=== PATIENT | male | born 1940 | race Caucasian/White ===

== ENCOUNTER 2016-09-10 09:51 | Emergency (ER) | payer MEDICARE, BC ==
[~2016-09-10] VITALS: Ht 172.7 cm; Wt 84.0 kg
[~2016-09-10 09:51] MED LIST: ASPI81TA82 PO; CHLO50TA PO; DIPH1TAB36 PO; LOSA50TA PO; MELA5TAB8 PO; META28.3 PO; MULT1TAB PO; TAMS0.4C4 PO; VITATAB25 PO
[2016-09-10 09:57] VITALS: BP 212/98; PULSE 77; RESP 16; TEMP 98.1; O2SAT 95
[2016-09-10 10:04] VITALS: PULSE 82; RESP 16; O2SAT 96
[2016-09-10] MEDS ORDERED: CYAN25003 SL (10:15)
[2016-09-10] MEDS ORDERED: ACETAMINOPHEN/HYDROcodone 325 MG/5 MG TAB PO ONE (10:15)
[2016-09-10] MEDS ORDERED: VALA500T PO (10:15)
[2016-09-10] MEDS ORDERED: LOSA50TA PO (10:15)
[2016-09-10] MEDS ORDERED: HYDR1CRE73 (10:15)
[2016-09-10] MEDS ORDERED: MELA5TAB14 PO (10:15)
[2016-09-10] MEDS ORDERED: META48.53 PO (10:15)
[2016-09-10] MEDS ORDERED: B-COCAP9 PO (10:15)
[2016-09-10] MEDS ORDERED: CHLO25TA2 PO (10:15)
[2016-09-10] MEDS ORDERED: VITA100064 PO (10:15)
[2016-09-10] MEDS ORDERED: ASPI-110 PO (10:15)
[2016-09-10] MEDS ORDERED: FLUT50SP EACH NARE (10:15)
[2016-09-10] MEDS ORDERED: FISHCAP PO (10:15)
--- NOTE | 2016-09-10 10:21 | PD ---
HPI Chief Complaint: Fall Time Seen by Provider: 10:15 Travel History International Travel<30 days: No Contact w/Intl Traveler<30days: No Traveled to known affect area: No History of Present Illness HPI This is a 76-year-old male who takes a baby aspirin 3 times per week who presents to the emergency department having fallen off 4 foot scaffolding yesterday. The patient sustained an injury to his right upper abdomen and lower chest and he hit his head. He says he has 4 out of 10 pain this morning, constant, worse with walking and deep breath, improved with rest. His pain is mostly in the right upper quadrant sometimes radiating to the back. He also has a slight headache on the right side where he hit his head. He doesn't think he lost consciousness but isn't sure. He denies any neck pain. He went to an urgent care prior to arrival here and was referred here for CT imaging. PFSH Past Medical History Cancer: Yes (basal cell ca) Cardiovascular Problems: Yes Diabetes: No Diminished Hearing: Yes Endocrine: No Genitourinary: No Hepatitis: No Hiatal Hernia: Yes Hypertension: Yes Immune Disorder: No Insomnia: Yes Musculoskeletal: No Neurologic: No Reproductive: No Respiratory: No Thyroid Disease: No Tetanus Vaccination: Unknown Influenza Vaccination: Yes Past Surgical History AICD: No Body Medical Devices: 2 stents Cardiac Surgery: Yes (2 stents 2005 ) Coronary Stent: Yes (X2 2005) Joint Replacement: No Pacemaker: No Social History Alcohol Use: Yes (WINE OCC) Tobacco Use: No Substance Use: No Allergies-Medications (Allergen,Severity, Reaction): Coded Allergies: Lisinopril (Verified Allergy, Unknown, 09/10/16) Bactrim (Unverified Adverse Reaction, Severe, Rash, 04/20/15) Zestril (Unverified Adverse Reaction, Severe, Swelling, 04/20/15) Reported Meds & Prescriptions Reported Meds & Active Scripts Active Reported Proctozone-Hc (Hydrocortisone (Rectal)) 2.5 % Cre Valacyclovir (Valacyclovir HCl) 500 Mg Tab 500 Mg PO BID Melatonin Tr 5-10 mg (Melatonin-Pyridoxine) 1 Tab Tab 5 Mg PO HS Fluticasone Nasal [place] 50 Mcg/Act Naspr 2 [place] EACH NARE BID 50 mcg/spray Aspirin 81 (Aspirin) 81 Mg Tabdr 81 Mg PO DAILY Fish Oil 435 mg ([place]-3 Fatty Acids) 1 Cap Cap 300 Mg PO DAILY Vitamin B-12 (Cyanocobalamin) 2,500 Mcg Subl 2,500 Mcg SL DAILY Super B-Complex (B-Complex W/Biotin & Folic Acid) 1 Cap 1,000 Mcg PO DAILY Vitamin D (Cholecalciferol) 1,000 Unit Tab 2,000 Units PO DAILY Metamucil Original Texture (Psyllium Hydrophilic Mucilloid) 48.57 % Pow 1 Scoop PO DAILY PRN 1 rounded [place] in 8 oz of liquid at the first sign of irregularity. Losartan (Losartan Potassium) 50 Mg Tab 50 Mg PO DAILY Chlorthalidone 25 Mg Tab 37.5 Mg PO DAILY Review of Systems Except as stated in HPI: all other systems reviewed are Neg Physical Exam Narrative GENERAL:Well appearing, no acute distress SKIN: Large ecchymoses over the right upper quadrant of the abdomen with some skin abrasion. Ecchymoses and abrasion on the distal left lower extremity. HEAD: Hematoma along the right temporal area. EYES: Pupils equal and round. No injection or drainage. ENT: Moist mucous membranes NECK: Trachea midline. No cervical spine tenderness. CARDIOVASCULAR: Regular rate and rhythm. No murmur appreciated. RESPIRATORY: Clear to auscultation. Breath sounds equal bilaterally. GASTROINTESTINAL: Abdomen soft, tender to palpation in the right upper quadrant with some guarding. MUSCULOSKELETAL: No obvious deformities. NEUROLOGICAL: Awake and alert. No obvious cranial nerve deficits. Moving all extremities. PSYCHIATRIC: Appropriate mood and affect; insight and judgment normal. Data Data Last Documented VS Vital Signs Date Time Temp Pulse Resp B/P Pulse Ox O2 Delivery O2 Flow Rate FiO2 09/10/16 11:54 16 09/10/16 10:30 82 187/78 98 Room Air 09/10/16 09:57 98.1 Orders Complete Blood Count With Diff (09/10/16 10:15) Basic Metabolic Panel (Bmp) (09/10/16 10:15) ^ Insert Iv (09/10/16 10:15) Ct Brain W/O Iv Contrast(Rout) (09/10/16 ) Ct Abd/Pel W Iv Contrast(Rout) (09/10/16 ) Chest, Single Ap (09/10/16 ) Acetamin-Hydrocod 325-5 Mg ([place] 5-325 (09/10/16 10:15) Iohexol 350 Inj (Omnipaque 350 Inj) (09/10/16 11:37) Labs Laboratory Tests Test 09/10/16 10:19 White Blood Count 7.2 TH/MM3 Red Blood Count 4.39 MIL/MM3 Hemoglobin 14.2 GM/DL Hematocrit 41.5 % Mean Corpuscular Volume 94.5 FL Mean Corpuscular Hemoglobin 32.3 PG Mean Corpuscular Hemoglobin 34.2 % Concent Red Cell Distribution Width 13.5 % Platelet Count 178 TH/MM3 Mean Platelet Volume 8.7 FL Neutrophils (%) (Auto) 66.3 % Lymphocytes (%) (Auto) 19.7 % Monocytes (%) (Auto) 11.8 % Eosinophils (%) (Auto) 1.4 % Basophils (%) (Auto) 0.8 % Neutrophils # (Auto) 4.8 TH/MM3 Lymphocytes # (Auto) 1.4 TH/MM3 Monocytes # (Auto) 0.9 TH/MM3 Eosinophils # (Auto) 0.1 TH/MM3 Basophils # (Auto) 0.1 TH/MM3 CBC Comment DIFF FINAL Differential Comment Sodium Level 141 MEQ/L Potassium Level 3.9 MEQ/L Chloride Level 103 MEQ/L Carbon Dioxide Level 29.7 MEQ/L Anion Gap 8 MEQ/L Blood Urea Nitrogen 17 MG/DL Creatinine 0.89 MG/DL Estimat Glomerular Filtration 83 ML/MIN Rate Random Glucose 93 MG/DL Calcium Level 9.0 MG/DL MDM Medical Decision Making Medical Screen Exam Complete: Yes Emergency Medical Condition: Yes Interpretation(s) Afebrile, no tachycardia, hypertensive Last 24 hours Impressions Chest X-Ray 09/10/16 0000 Signed Impressions: Service Date/Time: Saturday, September 10, 2016 10:18 - CONCLUSION: No acute cardiopulmonary abnormality is identified. The sclerotic area in the right proximal humerus is nonspecific but may represent a bone island. Diaz Harvey MD CT of the head: hematoma, no intracranial hemorrhage CT the abdomen and pelvis: Abdominal wall contusion with no intra-abdominal injury Differential Diagnosis Intracranial hemorrhage, cervical spine fracture, liver laceration, abdominal wall contusion, rib fracture Narrative Course This is a 76-year-old male who presents to the emergency department having fallen off for foot scaffolding yesterday injuring his right side and his head. Patient was placed on a monitor and an IV was established. CT of the head was negative for intracranial hemorrhage. CT the abdomen and pelvis was negative for internal injury. X-ray of the chest demonstrates no pneumothorax. I suspect clinically that he does have rib fracture. Plan for pain control and incentive spirometry. Diagnosis Primary Impression: Contusion of rib on right side Qualified Code: S20.211A - Contusion of rib on right side, initial encounter Additional Impression: Abdominal wall contusion Patient Instructions: General Instructions Additional Instructions: If you develop severe chest pain, shortness of breath, sweating, lightheadedness , dizziness or difficulty breathing return to the emergency department immediately. You have a sclerotic area on the proximal humerus which is likely a bone island. This should be followed by your primary care physician. Med/Other Pt SpecificInfo: Prescription(s) given Scripts Hydrocodone-Acetaminophen (Lortab)5-325 Mg Tab1-2 Tab PO Q6H PRN (PAIN) #15 TAB Ref 0 Prov:Mary Betts MD 09/10/16 Disposition: 01 DISCHARGE HOME Condition: Stable Mary Betts MD Sep 10, 2016 10:21
[2016-09-10 10:30] VITALS: BP 187/78; PULSE 72; PULSE 82; RESP 16; O2SAT 98
[2016-09-10 10:38] LABS: AUTOMATED NEUTROPHIL # 4.8 TH/MM3 (1.8-7.7); BASOPHIL # 0.1 TH/MM3 (0-0.2); BASOPHIL % 0.8 % (0.0-2.0); EOSINOPHIL # 0.1 TH/MM3 (0-0.4); EOSINOPHIL % 1.4 % (0.0-4.0); HEMATOCRIT 41.5 % (39.0-51.0); HEMO FLAGS DIFF FINAL; LYMPH % 19.7 % (9.0-44.0); LYMPHOCYTE # 1.4 TH/MM3 (1.0-4.8); MEAN CELL VOLUME 94.5 FL (80.0-100.0); MEAN CORPUSCULAR HEMOGLOBIN 32.3 PG (27.0-34.0); MEAN CORPUSCULAR HGB CONC 34.2 % (32.0-36.0); MONO % 11.8 % (0.0-8.0); NEUT % 66.3 % (16.0-70.0); PLATELET COUNT 178 TH/MM3 (150-450); RED BLOOD COUNT 4.39 MIL/MM3 (4.50-5.90); RED CELL DISTRIBUTION WIDTH 13.5 % (11.6-17.2); WHITE BLOOD COUNT 7.2 TH/MM3 (4.0-11.0)
--- NOTE | 2016-09-10 10:38 | RADRPT ---
EXAM DATE/TIME: 09/10/2016 10:18 [facility] COMPARISON: No previous studies available for comparison. INDICATIONS : Chest Pain, Short of Breath. MEDICAL HISTORY : None. SURGICAL HISTORY : Stents. ENCOUNTER: Initial ACUITY: 1 day PAIN SCORE: 4/10 LOCATION: Bilateral chest FINDINGS: Portable AP view of the chest demonstrates a normal-sized cardiac silhouette. No effusion, consolidat ion, or pneumothorax is visualized. The bones and soft tissues demonstrate no acute abnormality. Ther e is a partially visualized sclerotic area in the right proximal humerus measuring approximately 13 m m. CONCLUSION: No acute cardiopulmonary abnormality is identified. The sclerotic area in the right proximal humerus is nonspecific but may represent a bone island. Diaz Harvey MD on September 10, 2016 at 10:35 Board Certified Radiologist. This report was verified electronically.
[2016-09-10 11:03] LABS: BICARBONATE 29.7 MEQ/L (21.0-32.0); POTASSIUM 3.9 MEQ/L (3.5-5.1)
[2016-09-10] MEDS ORDERED: IOHEXOL 350 MG/ML 10 ML VIAL (for RAD DIAG) IV ONE (11:37)
--- NOTE | 2016-09-10 11:52 | RADRPT ---
EXAM DATE/TIME: 09/10/2016 11:34 [facility] COMPARISON: No previous studies available for comparison. INDICATIONS : Trauma. Fall on right side. RADIATION DOSE: 62.10 CTDIvol (mGy) MEDICAL HISTORY : Cardiovascular disease. Hypertension. Hernia, hiatal. SURGICAL HISTORY : None. ENCOUNTER: Initial ACUITY: 1 day PAIN SCALE: 4/10 LOCATION: Right cranial TECHNIQUE: Multiple contiguous axial images were obtained of the head. Using automated exposure control and adj ustment of the mA and/or kV according to patient size, radiation dose was kept as low as reasonably a chievable to obtain optimal diagnostic quality images. FINDINGS: CEREBRUM: The ventricles are normal for age. No evidence of midline shift, mass lesion, hemorrhage or acute in farction. No extra-axial fluid collections are seen. POSTERIOR FOSSA: The cerebellum and brainstem are intact. The 4th ventricle is midline. The cerebellopontine angle i s unremarkable. EXTRACRANIAL: There is right scalp soft tissue swelling and hematoma the high convexity in the parietal region. SKULL: The calvaria is intact. No evidence of skull fracture. CONCLUSION: Right scalp soft tissue swelling and hematoma. No fracture or acute intracranial abnormality is ident ified. Diaz Harvey MD on September 10, 2016 at 11:49 Board Certified Radiologist. This report was verified electronically.
[2016-09-10 12:00] VITALS: BP 175/79; PULSE 62; RESP 16; O2SAT 99
--- NOTE | 2016-09-10 12:09 | RADRPT ---
EXAM DATE/TIME: 09/10/2016 11:41 [facility] COMPARISON: No previous studies available for comparison. INDICATIONS : Trauma. Fall on right side. IV CONTRAST: 75 cc Omnipaque 350 (iohexol) IV ORAL CONTRAST: No oral contrast ingested. RADIATION DOSE: 13.81 CTDIvol (mGy) MEDICAL HISTORY : Cardiovascular disease. Hypertension. Hernia, hiatal. SURGICAL HISTORY : None. ENCOUNTER: Initial ACUITY: 1 day PAIN SCALE: 4/10 LOCATION: Right abdomen TECHNIQUE: Volumetric scanning of the abdomen and pelvis was performed. Using automated exposure control and ad justment of the mA and/or kV according to patient size, radiation dose was kept as low as reasonably achievable to obtain optimal diagnostic quality images. FINDINGS: LOWER LUNGS: The visualized lower lungs are clear. There is coronary artery calcification. LIVER: Homogeneous density without lesion. There is no dilation of the biliary tree. No calcified gallston es. SPLEEN: Normal size without lesion. PANCREAS: Within normal limits. KIDNEYS: Normal in size and shape. There is no mass, stone or hydronephrosis. ADRENAL GLANDS: Within normal limits. VASCULAR: There is no aortic aneurysm. There is severe atherosclerotic disease. BOWEL/MESENTERY: The stomach, small bowel, and colon demonstrate no acute abnormality. There is no free intraperitone al air or fluid. Appendix is normal. ABDOMINAL WALL: There is mild skin thickening and subcutaneous stranding along the right anterolateral upper abdomina l wall. RETROPERITONEUM: There is no lymphadenopathy. BLADDER: No wall thickening or mass. REPRODUCTIVE: Within normal limits. INGUINAL: There is no lymphadenopathy or hernia. MUSCULOSKELETAL: There are degenerative changes of the lumbar spine. No fracture is seen. CONCLUSION: 1. Skin thickening and subcutaneous stranding along the right anterolateral superior abdominal wall l ikely representing an area of contusion. No fracture or acute abnormality is seen. 2. Severe atherosclerotic disease of aorta and coronary artery calcification. Diaz Harvey MD on September 10, 2016 at 12:04 Board Certified Radiologist. This report was verified electronically.
[2016-09-10] MEDS ORDERED: HYDR-3533 PO (12:19)
== END 2016-09-10 12:54 | disposition home or self-care (01) ==
LOC: NEPA 09:51
DX: S20.211A Contusion of right front wall of thorax, initial encounter (principal); S30.1XXA Contusion of abdominal wall, initial encounter; W17.89XA Other fall from one level to another, initial encounter
CPT/HCPCS: 70450; 71010; 74177; 80048; 85025; 99284; Q9967